=== PATIENT | male | born 2000 | race Caucasian/White ===

== ENCOUNTER 2019-12-31 15:19 | Emergency (ER) | payer SELFPAY ==
[~2019-12-31] VITALS: Ht 170.1 cm; Wt 61.0 kg
--- NOTE | 2019-12-31 15:43 | ED Upper Extremity ---
General Chief Complaint: Upper Extremity Stated Complaint: SMASHED RT HAND History of Present Illness Date Seen by Provider: Dec 31, 2019 Time Seen by Provider: 15:42 Initial Comments Patient's right middle finger was smashed in a roller at work and he is hurting primarily on the distal tip. No obvious open wounds or abrasions however there is some swelling at the tip. Allergies and Home Medications Allergies Coded Allergies: No Known Drug Allergies (Unverified , 12/31/19) Patient Home Medication List Home Medication List Reviewed: Yes Review of Systems Constitutional: no symptoms reported Musculoskeletal: joint pain, joint swelling Skin: no symptoms reported Psychiatric/Neurological: No Symptoms Reported All Other Systems Reviewed Negative Unless Noted: Yes Past Myvzego-Bjrjgu-Kckdlk Hx Patient Social History Recent Foreign Travel: No Contact w/Someone Who Travel: No Physical Exam Vital Signs Capillary Refill : Height, Weight, BMI Height: '" Weight: lbs. oz. kg; BMI Method: General Appearance: WD/WN, no apparent distress Hand: swelling (right middle finger with swelling at the distal and middle phalanx. Extension and flexion intact. Normal sensation and there is a very small subungual hematoma noted less than 10% of the nail. ) Neurologic/Tendon: normal sensation, normal motor functions, normal tendon functions Neurologic/Psychiatric: no motor/sensory deficits Skin: warm/dry Progress/Results/Core Measures Results/Orders My Orders Orders - BISI PERALTA DO Hand 3 View Right (12/31/19 15:28) Hydrocodone/Apap 5/325 Tablet (Lortab 5 (12/31/19 15:45) Ibuprofen Tablet (Motrin Tablet) (12/31/19 15:45) Medications Given in ED Current Medications Medications Dose Ordered Sig/Telly Route Start Time Stop Time Status Last Admin Dose Admin Acetaminophen/ Hydrocodone Bitart 2 tab ONCE ONCE PO 12/31/19 15:45 12/31/19 15:46 DC 12/31/19 15:49 2 TAB Ibuprofen 600 mg ONCE ONCE PO 12/31/19 15:45 12/31/19 15:46 DC 12/31/19 15:49 600 MG Progress Progress Note : Progress Note I reviewed x-ray and there is no signs of fracture radiologist felt there is swelling in the second third digits that is present on physical exam as well. I reexamined his tendon function any [place] has intact flexion and extension with no weakness noted. Patient will be placed in a finger splint and told to follow with orthopedics and come back to the ED sooner with any worsening pain weakness or color change with or general concerns. Patient aware and agreeable with plan and verbalized understanding of the above instructions. Departure Impression Primary Impression: Finger contusion Qualified Codes: S60.031A - Contusion of right middle finger without damage to nail, initial encounter Disposition: HOME, SELF-CARE Condition: Stable Departure-Patient Inst. Referrals: NO,LOCAL PHYSICIAN (PCP/Family) Primary Care Physician Patient Instructions: Common Finger Injuries (DC) Add. Discharge Instructions: Rest Ice Compression Elevation 600mg ibuprofen every 6 hours All discharge instructions reviewed with patient and/or family. Voiced understanding. Scripts Hydrocodone/Acetaminophen (Hydrocodone-Acetamin 5-325 mg) 1 Each Tablet 1 EACH PO qhs PRN for PAIN-SEVERE (8-10), #5 TAB Prov: BISI PERALTA DO 12/31/19 Work/School Note: Work Release Form Date Seen in the Emergency Department: Dec 31, 2019 Return to Work: Jan 07, 2020 Restrictions: Need Release from Doctor BISI EPRALTA DO Dec 31, 2019 15:43
[2019-12-31] MEDS ORDERED: IBUPROFEN 600 MG (MOTRIN) TAB PO ONE (15:45)
[2019-12-31] MEDS ORDERED: HYDROcodone/APAP 5 MG/325 MG (LORTAB) TAB PO ONE (15:45)
--- NOTE | 2019-12-31 15:45 | Diagnostic Imaging Report ---
INDICATION: Right hand injury. TECHNIQUE: AP, oblique, and lateral views of the right hand are obtained. FINDINGS: No definite fracture is identified. There is no abnormal lytic or sclerotic focus. There is mild hyperextension of the second and third phalanges at the proximal interphalangeal joints. IMPRESSION: Possible hyperexpansion of the second and third fingers at the proximal interphalangeal joints could be related to flexor tendon injuries and clinical correlation would be useful. Otherwise, no definite acute abnormality or radiopaque foreign body is identified. Dictated by: Dictated on workstation # [id number]
[2019-12-31] MEDS ORDERED: ACHD5005 PO (16:03)
== END 2019-12-31 16:18 | disposition home or self-care (01) ==
LOC: ER FS 15:21
DX: S60.121A Contusion of right index finger with damage to nail, initial encounter (principal); W23.1XXA Caught, crushed, jammed, or pinched between stationary objects, initial encounter; Y92.59 Other trade areas as the place of occurrence of the external cause; Y99.0 Civilian activity done for income or pay
CPT/HCPCS: 73130